=== PATIENT | male | born 1945 | race Caucasian/White ===

== ENCOUNTER 2018-06-05 23:38 | Inpatient (IN) | payer MEDICARE, OTHER ==
[~2018-06-05] VITALS: Ht 182.9 cm; Wt 111.1 kg
[2018-06-05] MEDS ORDERED: PRAMIPEXOLE DI0.5 MG ORAL (23:46)
--- NOTE | 2018-06-05 23:57 | Emergency Room Report ---
History of Present Illness General Chief Complaint: Overdose Source: Patient Present Illness HPI Patient presents with reports that he feels he took 18 75 mg cervicals at 8 PM tonight Patient reports that he is taking pramipexole .25 every night and he takes 18 of those, and mistakenly took the wrong medication At approximately 10:30 he started feeling somewhat weak some dizziness Mild nausea And after rechecking he realized that he had taken the wrong medication After contacting poison control he presents to the ER Allergies: Coded Allergies: No Known Allergies (Unverified , 06/05/18) Patient History Past Medical History: see triage record Pertinent Family History: none Reviewed Nursing Documentation: PMH: Agreed; PSxH: Agreed Nursing Documentation-PMH Past Medical History: No Stated History History Of Psychiatric Problem: Yes - depression Review of Systems All Other Systems: negative except mentioned in HPI Physical Exam Vital Signs Date Time Temp Pulse Resp B/P (MAP) Pulse Ox O2 Delivery O2 Flow Rate FiO2 06/05/18 23:41 98.1 100 14 126/86 99 Sp02 EP Interpretation: reviewed, normal General Appearance: well appearing, no apparent distress Head: normocephalic, atraumatic Eyes: bilateral eye PERRL, bilateral eye EOMI ENT: hearing grossly normal, normal pharynx, TMs + canals normal, uvula midline Neck: full range of motion, supple, no meningismus, no bony tend Respiratory: lungs clear, normal breath sounds, no rhonchi, no respiratory distress, no retraction, no accessory muscle use Cardiovascular #1: normal peripheral pulses, regular rate, rhythm, no edema, no gallop, no JVD, no murmur Gastrointestinal: normal bowel sounds, non tender, soft, no mass, no organomegaly, non-distended, no guarding, no hernia, no pulsatile mass, no rebound Genitourinary: no CVA tenderness Musculoskeletal: normal inspection Neurologic: oriented x3, responsive, 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, motor strength/ tone normal, sensory intact Psychiatric: mood/affect normal Skin: normal color, no rash, warm/dry, palpation normal Lymphatic: normal inspection, no adenopathy Procedures Critical Care Time Critical Care Time 40 minutes for initial clinical presentation concern for drug ingestion, and cardiac changes, family consultant such as poison control not including procedural time Medical Decision Making Diagnostic Impression: Primary Impression: Drug overdose Additional Impression: Dehydration ER Course Given the patient's presentation Poison control was contacted At Patient presents somewhat tachycardic Patient remains awake and alert however reports that he had felt some weakness and mild headache At this time patient's EKG did show mildly prolonged QRS however patient reports that he does have some interventricular block he cannot give a specific however Given the patient's findings sodium bicarbonate was recommended by poison control patient has not significantly better and heart rate has improved down to 90 QRS appears to be more consistent with likely interventricular block Nevertheless given the findings and the patient's presentation I felt patient required further inpatient care and further clearance also given the patient's history Psychiatric consultation obtain inpatient Labs Test 06/06/18 00:04 White Blood Count 7.1 K/UL (4.8-10.8) Red Blood Count 5.46 M/UL (4.70-6.10) Hemoglobin 16.0 G/DL (14.2-18.0) Hematocrit 47.4 % (42.0-52.0) Mean Corpuscular Volume 87 FL (80-99) Mean Corpuscular Hemoglobin 29.4 PG (27.0-31.0) Mean Corpuscular Hemoglobin Concent 33.9 G/DL (32.0-36.0) Red Cell Distribution Width 12.5 % (11.6-14.8) Platelet Count 180 K/UL (150-450) Mean Platelet Volume 8.1 FL (6.5-10.1) Neutrophils (%) (Auto) 47.6 % (45.0-75.0) Lymphocytes (%) (Auto) 39.0 % (20.0-45.0) Monocytes (%) (Auto) 9.7 % (1.0-10.0) Eosinophils (%) (Auto) 2.3 % (0.0-3.0) Basophils (%) (Auto) 1.4 % (0.0-2.0) Sodium Level 140 MMOL/L (136-145) Potassium Level 3.8 MMOL/L (3.5-5.1) Chloride Level 105 MMOL/L (98-107) Carbon Dioxide Level 27 MMOL/L (21-32) Anion Gap 8 mmol/L (5-15) Blood Urea Nitrogen 20 mg/dL (7-18) Creatinine 0.9 MG/DL (0.55-1.30) Estimat Glomerular Filtration Rate mL/min (>60) Glucose Level 136 MG/DL (74-106) Calcium Level 9.2 MG/DL (8.5-10.1) Total Bilirubin 0.5 MG/DL (0.2-1.0) Aspartate Amino Transf (AST/SGOT) 26 U/L (15-37) Alanine Aminotransferase (ALT/SGPT) 51 U/L (12-78) Alkaline Phosphatase 103 U/L (46-116) Total Protein 7.4 G/DL (6.4-8.2) Albumin 3.4 G/DL (3.4-5.0) Globulin 4.0 g/dL Albumin/Globulin Ratio 0.9 (1.0-2.7) Salicylates Level 1.3 ug/mL (2.8-20) Urine Opiates Screen Negative (NEGATIVE) Acetaminophen Level < 2 MCG/ML (10-30) Urine Barbiturates Screen Negative (NEGATIVE) Phencyclidine (PCP) Screen Negative (NEGATIVE) Urine Amphetamines Screen Negative (NEGATIVE) Urine Benzodiazepines Screen Negative (NEGATIVE) Urine Cocaine Screen Negative (NEGATIVE) Urine Marijuana (THC) Screen Negative (NEGATIVE) Serum Alcohol < 3 mg/dL EKG Diagnostic Results Rate: tachycardiac Rhythm: other ST Segments: other - Right bundle branch block tachycardic Rhythm Strip Diag. Results EP Interpretation: yes Rate: 90 Rhythm: NSR, no PVC's, no ectopy Last Vital Signs Date Time Temp Pulse Resp B/P (MAP) Pulse Ox O2 Delivery O2 Flow Rate FiO2 06/05/18 23:41 98.1 100 14 126/86 99 Status: improved Disposition: ADMITTED INPATIENT Condition: Serious MichaelshivMeredith DO Jun 05, 2018 23:57
[2018-06-06] VITALS (8 sets, daily range): BP systolic 104–138; BP diastolic 51–87
--- NOTE | 2018-06-06 00:10 | NUR ---
ER Nurse Note: Pt came from home c/o overdose from 18 pills of 75mg of seroquel at 1999. Pt stated he took the wrong medication and at 2229, pt felt n/v and dizzy. Pt called posion control and came to ER. Pt a&ox4, VSS, pale. Pupils reactive to light, full sensation in all extremities. Voids with no difficulties. ERMD at pt side; will continue to montior.
[2018-06-06] MEDS ORDERED: Sodium Bicarbonate 50ml Carp IV ONE (00:15)
[2018-06-06 00:22] LABS: BASOPHILS % (AUTO) 1.4 % (0.0-2.0); EOSINOPHILS % (AUTO) 2.3 % (0.0-3.0); HEMATOCRIT 47.4 % (42.0-52.0); MEAN CORPUSCULAR VOLUME 87 FL (80-99); MONOCYTES % (AUTO) 9.7 % (1.0-10.0); NEUTROPHILS % (AUTO) 47.6 % (45.0-75.0); PLATELET COUNT 180 K/UL (150-450); RED BLOOD COUNT 5.46 M/UL (4.70-6.10); RED CELL DISTRIBUTION WIDTH 12.5 % (11.6-14.8); WHITE BLOOD COUNT 7.1 K/UL (4.8-10.8)
[2018-06-06 00:30] LABS: ANION GAP 8 mmol/L (5-15); BLOOD UREA NITROGEN 20 mg/dL (7-18); CALCIUM 9.2 MG/DL (8.5-10.1); CARBON DIOXIDE 27 MMOL/L (21-32); CHLORIDE 105 MMOL/L (98-107); CREATININE 0.9 MG/DL (0.55-1.30); POTASSIUM 3.8 MMOL/L (3.5-5.1); SODIUM 140 MMOL/L (136-145)
[2018-06-06 00:34] LABS: ALANINE AMINOTRANSFERASE 51 U/L (12-78); ALBUMIN 3.4 G/DL (3.4-5.0); ALBUMIN/GLOBULIN RATIO 0.9 (1.0-2.7); ALKALINE PHOSPHATASE 103 U/L (46-116); ASPARTATE AMINO TRANSFERASE 26 U/L (15-37); BILIRUBIN,TOTAL 0.5 MG/DL (0.2-1.0)
--- NOTE | 2018-06-06 00:59 | NUR ---
ER Nurse Note: All orders completed per ERMD orders; tolerated well. VSS, no signs of distress. All safety measures met; will continue to montior.
--- NOTE | 2018-06-06 03:50 | NUR ---
Hospital bed requested from [facility].
--- NOTE | 2018-06-06 04:02 | NUR ---
ER Nurse Note: Pt on inpt bed, able to transfer to [facility] without difficulty. Pt a&ox4, VSS no signs of distress. Pt is asleep and calm. IV patent. Contacted MD for orders. All safety measures met; will continue to juan ramon.
[2018-06-06] MEDS: D5 1/2NS 1,000 ML IV SCH ×2 (04:55→17:48)
[2018-06-06 05:19] LABS: BASOPHILS % (AUTO) 0.9 % (0.0-2.0); EOSINOPHILS % (AUTO) 2.9 % (0.0-3.0); HEMATOCRIT 43.5 % (42.0-52.0); HEMOGLOBIN 14.5 G/DL (14.2-18.0); LYMPHOCYTES % (AUTO) 41.2 % (20.0-45.0); MEAN CORPUSCULAR VOLUME 87 FL (80-99); MONOCYTES % (AUTO) 9.5 % (1.0-10.0); NEUTROPHILS % (AUTO) 45.6 % (45.0-75.0); PLATELET COUNT 164 K/UL (150-450); RED BLOOD COUNT 5.01 M/UL (4.70-6.10); RED CELL DISTRIBUTION WIDTH 12.5 % (11.6-14.8); WHITE BLOOD COUNT 6.2 K/UL (4.8-10.8)
[2018-06-06 05:29] LABS: ANION GAP 5 mmol/L (5-15); BLOOD UREA NITROGEN 18 mg/dL (7-18); CALCIUM 8.4 MG/DL (8.5-10.1); CARBON DIOXIDE 29 MMOL/L (21-32); CHLORIDE 110 MMOL/L (98-107); CREATININE 1.2 MG/DL (0.55-1.30); POTASSIUM 3.9 MMOL/L (3.5-5.1); SODIUM 144 MMOL/L (136-145)
--- NOTE | 2018-06-06 06:49 | NUR ---
ER Nurse Note: Pt asleep, calm, no signs of distress, VSS. IV patent; infusing 60 cc D5 .45 NS; tolerating well. Pt is ambulatory; no skin breakdown. Awaiting room in tele. All safety measures met; will endorse care to oncoming shift for continutiy of care.
--- NOTE | 2018-06-06 07:16 | NUR ---
ER Nurse Note: Report given to YIFAN Gore for continuity of care.
--- NOTE | 2018-06-06 07:18 | NUR ---
ED Nurse Note: Report received from Steven Turner RN. Patient noted resting comfortable. No s/sx of distress with oxygen saturation of 94% on room air, SR on the monitor with rate on 90s. Patient alert and oriented. Denies nausea nor pain. With on going IVF:D5 1/2 NS at 60 ml/hour. Waiting for bed in telemetry.
[2018-06-06] MEDS ORDERED: ZYPREXA2.5 MG ORAL ×2 (09:11→16:16)
[2018-06-06] MEDS ORDERED: VENLAFAXINE H37.5 MG ORAL (09:11)
--- NOTE | 2018-06-06 09:20 | NUR ---
ED Nurse Note: Report given to YIFAN Medina using SBAR. Patient to be transported to room 202-2. Patient made aware.
--- NOTE | 2018-06-06 09:25 | NUR ---
ED Nurse Note: Call received from poison control and spoke with Leandro and informed on the EKG results but with noted elevated QTc she gave recommendations as follows: repeat EKG and if QTc is >470 administer 1-2 grams of magnesium sulfate slow IVP over 10 minutes and may also repeat serum magnesium level to make sure Magnesium is not elevated after administration. ERICK was made aware with instruction to have Dr. Marx made aware of the recommendations.
--- NOTE | 2018-06-06 09:30 | NUR ---
NURSE NOTES: received patient report from laure brown. patient came in via hospital bed.patient is noted to be AOX4. not in acute distress. cardiac catheterization technologist initiated. vitals signs taken and recorded. belongings checked and signed. under the care of dr joshua garcia. will continue to care.
--- NOTE | 2018-06-06 09:35 | NUR ---
ED Nurse Note: Patient remained alert and oriented, no s/sx of distress on room air, vital signs stable, SR on the monitor. Transferred to room 202-2 via bed, with monitor on. All belongings were sent with patient and list reviewed with receiving RN. Carol, YIFAN was made aware of the poison control's recommendation and to ask Dr. Tahir Marx. Addendum: 06/06/18 at 1009 by JOHNY ED Nurse Note: Transferred at 0930.
--- NOTE | 2018-06-06 10:00 | NUR ---
NURSE NOTES: landon rn from ER reported that, posion control just called ER and made a recommendations that if QTC is more than 470, give 1-2 g of mag so4 IVP, slow for 10 minutes.will fu with admitting MD.
--- NOTE | 2018-06-06 10:02 | NUR ---
NURSE NOTES: Per ER patient was suspected overdose/ suicide attempt. Assessed patient, inquired pt was taking any new medications, per patient "I took seroquel by mistake instead of Pramipexole which was the one I was suppose to take." Inquire pt if they have ever had any urge to hurt self or others, patient denies urge to hurt self or others. Patient is alert and oriented x 4. Will continue to monitor patient.
--- NOTE | 2018-06-06 10:21 | NUR ---
NURSE NOTES: left a message to dr garcia regarding admission orders. awaiting callback and new orders.
--- NOTE | 2018-06-06 12:17 | Consultation ---
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 He took 18 pill of Zyprexa each 75m at instead of his pramipexole by mistake, started feeling somewhat weak some dizziness, nausea. He called himself the poison control and was told to come to ER. Allergies: Coded Allergies: No Known Allergies (Unverified , 06/05/18) Medication History Scheduled Olanzapine* (Zyprexa*), 2.5 MG ORAL BEDTIME, (Reported) Pramipexole Dihydrochloride* (Mirapex*), 0.25 MG ORAL THREE TIMES A DAY, ( Reported) Venlafaxine Hcl* (Effexor*), 112.5 MG ORAL DAILY, (Reported) Patient History Healthcare decision maker Resuscitation status Full Code Advanced Directive on File Review of Systems Constitutional: Reports: malaise, weakness All Other Systems: negative except mentioned in HPI Physical Exam General Appearance: WD/WN, no apparent distress Lines, tubes and drains: peripheral HEENT: normocephalic, atraumatic Neck: non-tender Respiratory/Chest: chest wall non-tender Breasts: no masses Cardiovascular/Chest: normal peripheral pulses Abdomen: normal bowel sounds Genitourinary/Rectal: normal genital exam Extremities: normal range of motion Skin Exam: normal pigmentation Neurologic: no motor/sensory deficits Last 24 Hour Vital Signs Date Time Temp Pulse Resp B/P (MAP) Pulse Ox O2 Delivery O2 Flow Rate FiO2 06/06/18 10:44 Room Air 06/06/18 10:00 Room Air 06/06/18 09:40 98.5 100 18 138/78 (98) 95 06/06/18 09:30 98.8 90 16 125/63 97 Room Air 06/06/18 09:20 98.8 90 16 125/63 97 Room Air 06/06/18 08:00 110 16 129/61 97 Room Air 06/06/18 07:22 90 16 Room Air 06/06/18 07:20 98.0 90 16 115/69 94 Room Air 06/06/18 06:48 98.0 94 16 106/87 97 Room Air 06/06/18 04:41 Room Air 06/06/18 04:02 98.0 95 15 128/84 99 06/06/18 00:10 98.1 100 14 126/86 99 06/06/18 00:10 100 14 06/05/18 23:41 98.1 100 14 126/86 99 Intake and Output 06/05/18 06/06/18 19:00 07:00 Intake Total 1060 ml Balance 1060 ml IV Total 1060 ml # Voids 1 Laboratory Tests Test 06/06/18 00:04 06/06/18 04:20 White Blood Count 7.1 K/UL (4.8-10.8) 6.2 K/UL (4.8-10.8) Red Blood Count 5.46 M/UL (4.70-6.10) 5.01 M/UL (4.70-6.10) Hemoglobin 16.0 G/DL (14.2-18.0) 14.5 G/DL (14.2-18.0) Hematocrit 47.4 % (42.0-52.0) 43.5 % (42.0-52.0) Mean Corpuscular Volume 87 FL (80-99) 87 FL (80-99) Mean Corpuscular Hemoglobin 29.4 PG (27.0-31.0) 28.9 PG (27.0-31.0) Mean Corpuscular Hemoglobin Concent 33.9 G/DL (32.0-36.0) 33.3 G/DL (32.0-36.0) Red Cell Distribution Width 12.5 % (11.6-14.8) 12.5 % (11.6-14.8) Platelet Count 180 K/UL (150-450) 164 K/UL (150-450) Mean Platelet Volume 8.1 FL (6.5-10.1) 8.4 FL (6.5-10.1) Neutrophils (%) (Auto) 47.6 % (45.0-75.0) 45.6 % (45.0-75.0) Lymphocytes (%) (Auto) 39.0 % (20.0-45.0) 41.2 % (20.0-45.0) Monocytes (%) (Auto) 9.7 % (1.0-10.0) 9.5 % (1.0-10.0) Eosinophils (%) (Auto) 2.3 % (0.0-3.0) 2.9 % (0.0-3.0) Basophils (%) (Auto) 1.4 % (0.0-2.0) 0.9 % (0.0-2.0) Sodium Level 140 MMOL/L (136-145) 144 MMOL/L (136-145) Potassium Level 3.8 MMOL/L (3.5-5.1) 3.9 MMOL/L (3.5-5.1) Chloride Level 105 MMOL/L (98-107) 110 MMOL/L (98-107) H Carbon Dioxide Level 27 MMOL/L (21-32) 29 MMOL/L (21-32) Anion Gap 8 mmol/L (5-15) 5 mmol/L (5-15) Blood Urea Nitrogen 20 mg/dL (7-18) H 18 mg/dL (7-18) Creatinine 0.9 MG/DL (0.55-1.30) 1.2 MG/DL (0.55-1.30) Estimat Glomerular Filtration Rate mL/min (>60) mL/min (>60) Glucose Level 136 MG/DL (74-106) H 115 MG/DL (74-106) H Calcium Level 9.2 MG/DL (8.5-10.1) 8.4 MG/DL (8.5-10.1) L Total Bilirubin 0.5 MG/DL (0.2-1.0) Aspartate Amino Transf (AST/SGOT) 26 U/L (15-37) Alanine Aminotransferase (ALT/SGPT) 51 U/L (12-78) Alkaline Phosphatase 103 U/L (46-116) Total Protein 7.4 G/DL (6.4-8.2) Albumin 3.4 G/DL (3.4-5.0) Globulin 4.0 g/dL Albumin/Globulin Ratio 0.9 (1.0-2.7) L Salicylates Level 1.3 ug/mL (2.8-20) L Urine Opiates Screen Negative (NEGATIVE) Acetaminophen Level < 2 MCG/ML (10-30) L Urine Barbiturates Screen Negative (NEGATIVE) Phencyclidine (PCP) Screen Negative (NEGATIVE) Urine Amphetamines Screen Negative (NEGATIVE) Urine Benzodiazepines Screen Negative (NEGATIVE) Urine Cocaine Screen Negative (NEGATIVE) Urine Marijuana (THC) Screen Negative (NEGATIVE) Serum Alcohol < 3 mg/dL Height (Feet): 6 Height (Inches): 0.00 Weight (Pounds): 245 Medications Current Medications Medications (Trade) Dose Ordered Sig/Claudia Route PRN Reason Start Time Stop Time Status Last Admin Dose Admin Dextrose (Dextrose 50%) 25 ml Q30M PRN IV Hypoglycemia 06/06/18 04:15 07/06/18 04:14 Dextrose (Dextrose 50%) 50 ml Q30M PRN IV Hypoglycemia 06/06/18 04:15 07/06/18 04:14 Dextrose/Sodium Chloride 1,000 ml @ 60 mls/hr [id number] IV 06/06/18 05:05 07/06/18 05:04 06/06/18 04:55 Assessment/Plan Problem List: (1) Parkinson disease ICD Codes: G20 - Parkinson's disease SNOMED: 41029307 (2) Accidental Zyprexa poisoning ICD Codes: T43.591A - Poisoning by other antipsychotics and neuroleptics, accidental (unintentional), initial encounter SNOMED: 739444246 Assessment/Plan IV fluids fu poison control recommendations Echocardiogram serial ekg Sachi Ridley MD Jun 06, 2018 12:17
--- NOTE | 2018-06-06 12:19 | NUR ---
NURSE NOTES: left a message to dr richards [phone] banegas request for old EKG result.awaitng callback and new orders as of this time.
--- NOTE | 2018-06-06 13:39 | NUR ---
NURSE NOTES: left a message to dr johnson regarding patients mirapex dosage. awaiting callback and new orders as of this time.
[2018-06-06] MEDS ORDERED: FISH OIL CAP1000 MG ORAL (16:07)
[2018-06-06] MEDS ORDERED: ASPIRIN-LOW81 MG ORAL (16:16)
--- NOTE | 2018-06-06 16:24 | NUR ---
NURSE NOTES: per dr johnson, do not administer zyprexa. asa 81 mg and fish oil are ok to administer. will carry out.
--- NOTE | 2018-06-06 18:03 | NUR ---
NURSE NOTES: LEFT A MESSAGE TO DR MCCALLUM REGARDING DVT PROPHYLAXIS. AWAITNG CALLBACK AND NEW ORDER.
--- NOTE | 2018-06-06 18:45 | History and Physical Report ---
DATE OF ADMISSION: 06/06/2018 TIME SEEN: At 1 p.m. CONSULTANTS: 1. Sachi Ridley M.D. 2. Wilma Crawford M.D. CHIEF COMPLAINT: Seroquel overdose. BRIEF HISTORY: This is a 72-year-old male, who lives at home, presents with history of overdosing on Seroquel yesterday. He stated that he accidentally took 18 Seroquel. The patient came to [facility], diagnosed with the above, admitted to telemetry for further care. Currently, hard of hearing and calm in bed. No complaint. No chest pain. No shortness of breath. No nausea, vomiting, or diarrhea. PAST MEDICAL HISTORY: Poor hearing and depression. PAST SURGICAL HISTORY: Tonsillectomy. ALLERGIES: Denies. MEDICATION: Effexor, magnesium, dextrose, IV fluid, and Mirapex. SOCIAL HISTORY: No smoking. No alcohol. No intravenous drug abuse FAMILY HISTORY: Noncontributory. PHYSICAL EXAMINATION: GENERAL: Calm in bed and oriented x2, in no acute distress and poor hearing. VITAL SIGNS: Temperature is 98 degrees, pulse is 118, and blood pressure 138/78. CARDIOVASCULAR: No murmur. LUNGS: Distant and clear. ABDOMEN: Bowel sounds positive. Nontender. Nondistended. EXTREMITIES: No cyanosis, clubbing, or edema. NEUROLOGIC: The patient moves all extremities, slightly weak. LABORATORY AND DIAGNOSTIC DATA: Labs at this time show, CBC is normal. BMP shows chloride 110, glucose 115, calcium 8.4, and troponin 0.016. Urine toxicology, salicylate 1.3 and Tylenol less than 2, otherwise all negative. ASSESSMENT: 1. Seroquel overdose. 2. Poor hearing. 3. Parkinson. PLAN: 1. Intravenous fluid. 2. Dietary followup. 3. CBC and BMP this morning. 4. Psych and pulmonary followup. Tahir Marx D.O. DR: LORNA JOB#: [id number] CC:
--- NOTE | 2018-06-06 18:52 | NUR ---
NURSE NOTES: left a message to dr taylor (psych) regarding this patient to call back the unit for psych eval.awaitng callback.
--- NOTE | 2018-06-06 19:19 | NUR ---
HAND-OFF: Report given to helder brown.
--- NOTE | 2018-06-06 19:20 | NUR ---
NURSE NOTES: Got report from Carol SAHA. Pt in stable condition. Denies any pain. No s/s of distress or discomfort noted. Pt ersting in bed comfortably. Bed in low and locked position, call llight within reach, bedside table within reach. continue to monitor.
[2018-06-06] MEDS ORDERED: Pramipexole 0.5mg tab ORAL SCH (21:00)
[2018-06-07] VITALS: BP 102/50
[2018-06-07 04:00] VITALS: BP 117/81
--- NOTE | 2018-06-07 07:22 | NUR ---
NURSE NOTES: Received report form YIFAN Kirk. Patient is resting in bed, in stable condition. No s/sx of SOB, breathing is even and unlabored. Denies any presence of pain or discomfort at this time. Bed is in lowest position, brakes engaged. Call light is kept within easy reach. Will continue to monitor patient.
--- NOTE | 2018-06-07 07:30 | NUR ---
HAND-OFF: Report given to willy brown. endorsed plan of care.
[2018-06-07 08:32] LABS: BASOPHILS % (AUTO) 0.7 % (0.0-2.0); EOSINOPHILS % (AUTO) 2.2 % (0.0-3.0); HEMATOCRIT 44.4 % (42.0-52.0); LYMPHOCYTES % (AUTO) 30.5 % (20.0-45.0); MEAN CORPUSCULAR VOLUME 88 FL (80-99); MONOCYTES % (AUTO) 10.8 % (1.0-10.0); NEUTROPHILS % (AUTO) 55.8 % (45.0-75.0); PLATELET COUNT 169 K/UL (150-450); RED BLOOD COUNT 5.05 M/UL (4.70-6.10); RED CELL DISTRIBUTION WIDTH 12.9 % (11.6-14.8); WHITE BLOOD COUNT 6.5 K/UL (4.8-10.8)
[2018-06-07] MEDS ORDERED: Venlafaxine XR 37.5mg cap ORAL SCH (09:00)
[2018-06-07] MEDS ORDERED: Aspirin EC 81mg tab ORAL SCH (09:00)
--- NOTE | 2018-06-07 09:07 | NUR ---
REHAB MED PT NOTE CONSULT BRISSA OCONNOR COMPLETED, PATIENT NO SKILLED NEEDS AT THIS TIME. AT BASELINE LEVEL OF FUNCTION. PATIENT REFUSING. DC PT ORDER. APRIL STEELE PT DPT Addendum: 06/07/18 at 0907 by APRIL STEELE PT Amended: Links added.
[2018-06-07 09:37] LABS: ANION GAP 7 mmol/L (5-15); BLOOD UREA NITROGEN 15 mg/dL (7-18); CALCIUM 8.7 MG/DL (8.5-10.1); CARBON DIOXIDE 26 MMOL/L (21-32); CHLORIDE 108 MMOL/L (98-107); CREATININE 1.1 MG/DL (0.55-1.30); POTASSIUM 4.2 MMOL/L (3.5-5.1); SODIUM 141 MMOL/L (136-145)
--- NOTE | 2018-06-07 10:26 | NUR ---
Social Work This Sw followed up with patient due to possible overdose prior to admission. This SW met with patient who is currently alert/oriented x3, hard of hearing, who explained he was not feeling suicidal, with no intent to harm self. Patient explains "I just took the wrong medication." Patient explains he plans to return home, has a friend who has been assisting him as needed. This SW provided [facility] information (contact number and application), while explaining what the services provide (patient plans to have his friend apply to become his caregiver). Patient also requesting home care to follow as well (as needed).
--- NOTE | 2018-06-07 12:26 | Pulmonology Progress Note ---
Assessment/Plan Problems: (1) Parkinson disease (2) Accidental Zyprexa poisoning Assessment/Plan dc IV fluids awaiting cardio consult f/u poison control recommendations symptomatic treatment echo reviewed Subjective ROS Limited/Unobtainable: Yes Constitutional: Reports: no symptoms HEENT: Repors: no symptoms Respiratory: Reports: no symptoms Cardiovascular: Reports: no symptoms Allergies: Coded Allergies: No Known Allergies (Unverified , 06/05/18) Objective Last 24 Hour Vital Signs Date Time Temp Pulse Resp B/P (MAP) Pulse Ox O2 Delivery O2 Flow Rate FiO2 06/07/18 09:00 Room Air 06/07/18 04:00 98.0 80 18 117/81 (93) 95 06/07/18 04:00 86 06/07/18 00:00 98.5 83 18 102/50 (67) 95 06/07/18 00:00 81 06/06/18 21:00 Room Air 06/06/18 20:00 89 06/06/18 20:00 98.1 86 19 104/51 (68) 95 06/06/18 16:00 89 Intake and Output 06/06/18 06/07/18 19:00 07:00 Intake Total 1190 ml Output Total 875 ml 600 ml Balance 315 ml -600 ml Intake Oral 360 ml IV Total 830 ml Output Urine Total 875 ml 600 ml # Voids 1 # Bowel Movements 1 General Appearance: WD/WN HEENT: normocephalic, atraumatic Respiratory/Chest: chest wall non-tender, lungs clear Cardiovascular: normal peripheral pulses, normal rate Abdomen: normal bowel sounds, soft, non tender Extremities: no cyanosis 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 Laboratory Tests 06/07/18 06:24: White Blood Count 6.5, Red Blood Count 5.05, Hemoglobin 15.0, Hematocrit 44.4, Mean Corpuscular Volume 88, Mean Corpuscular Hemoglobin 29.7, Mean Corpuscular Hemoglobin Concent 33.8, Red Cell Distribution Width 12.9, Platelet Count 169, Mean Platelet Volume 8.0, Neutrophils (%) (Auto) 55.8, Lymphocytes (%) (Auto) 30.5, Monocytes (%) (Auto) 10.8H, Eosinophils (%) (Auto) 2.2, Basophils (%) ( Auto) 0.7, Sodium Level 141, Potassium Level 4.2, Chloride Level 108H, Carbon Dioxide Level 26, Anion Gap 7, Blood Urea Nitrogen 15, Creatinine 1.1, Estimat Glomerular Filtration Rate , Glucose Level 99, Calcium Level 8.7, Troponin I 0.011 Current Medications Medications (Trade) Dose Ordered Sig/Claudia Route PRN Reason Start Time Stop Time Status Last Admin Dose Admin Aspirin (Ecotrin) 81 mg DAILY ORAL 06/07/18 09:00 07/07/18 08:59 06/07/18 08:25 Dextrose (Dextrose 50%) 25 ml Q30M PRN IV Hypoglycemia 06/06/18 04:15 07/06/18 04:14 Dextrose (Dextrose 50%) 50 ml Q30M PRN IV Hypoglycemia 06/06/18 04:15 07/06/18 04:14 Dextrose/Sodium Chloride 1,000 ml @ 60 mls/hr [id number] IV 06/06/18 05:05 07/06/18 05:04 06/06/18 17:48 Fish Oil (Fish Oil) 1,000 mg DAILY ORAL 06/07/18 09:00 07/07/18 08:59 06/07/18 08:25 Pramipexole (Mirapex) 4.5 mg QHS ORAL 06/06/18 21:00 07/06/18 20:59 06/06/18 21:00 Venlafaxine HCl (Effexor-XR) 112.5 mg DAILY ORAL 06/07/18 09:00 07/07/18 08:59 06/07/18 08:26 Sachi Ridley MD Jun 07, 2018 12:26
--- NOTE | 2018-06-07 12:55 | NUR ---
NURSE NOTES: Called Poison Control Department, , and spoke with Imer, per Imer would like to know QTc of recent EKG, informed Imer that QTc is 388 ms. Imer acknowledged and stated, "Okay much better, there are no more recommendations at this time, patient can leave once discharged by doctors." Noted. Informed Dr. Ridley at nurse station, acknowledged and will get cardio consult. Noted.
--- NOTE | 2018-06-07 13:51 | General Progress Note ---
Assessment/Plan Problem List: (1) Overdose ICD Codes: T50.901A - Poisoning by unspecified drugs, medicaments and biological substances, accidental (unintentional), initial encounter SNOMED: 90759500 (2) Drug overdose ICD Codes: T50.901A - Poisoning by unspecified drugs, medicaments and biological substances, accidental (unintentional), initial encounter SNOMED: 66171283 (3) Accidental Zyprexa poisoning ICD Codes: T43.591A - Poisoning by other antipsychotics and neuroleptics, accidental (unintentional), initial encounter SNOMED: 999116026 (4) Parkinson disease ICD Codes: G20 - Parkinson's disease SNOMED: 28239191 Status: unchanged Assessment/Plan diet ivf cbc bmp am dc plan w hh if clear cardio eval Subjective Constitutional: Reports: weakness Allergies: Coded Allergies: No Known Allergies (Unverified , 06/05/18) All Systems: reviewed and negative except above Subjective sl anxious in bed Objective Last 24 Hour Vital Signs Date Time Temp Pulse Resp B/P (MAP) Pulse Ox O2 Delivery O2 Flow Rate FiO2 06/07/18 09:00 Room Air 06/07/18 04:00 98.0 80 18 117/81 (93) 95 06/07/18 04:00 86 06/07/18 00:00 98.5 83 18 102/50 (67) 95 06/07/18 00:00 81 06/06/18 21:00 Room Air 06/06/18 20:00 89 06/06/18 20:00 98.1 86 19 104/51 (68) 95 06/06/18 16:00 89 Intake and Output 06/06/18 06/07/18 19:00 07:00 Intake Total 1190 ml Output Total 875 ml 600 ml Balance 315 ml -600 ml Intake Oral 360 ml IV Total 830 ml Output Urine Total 875 ml 600 ml # Voids 1 # Bowel Movements 1 Laboratory Tests 06/07/18 06:24: White Blood Count 6.5, Red Blood Count 5.05, Hemoglobin 15.0, Hematocrit 44.4, Mean Corpuscular Volume 88, Mean Corpuscular Hemoglobin 29.7, Mean Corpuscular Hemoglobin Concent 33.8, Red Cell Distribution Width 12.9, Platelet Count 169, Mean Platelet Volume 8.0, Neutrophils (%) (Auto) 55.8, Lymphocytes (%) (Auto) 30.5, Monocytes (%) (Auto) 10.8H, Eosinophils (%) (Auto) 2.2, Basophils (%) ( Auto) 0.7, Sodium Level 141, Potassium Level 4.2, Chloride Level 108H, Carbon Dioxide Level 26, Anion Gap 7, Blood Urea Nitrogen 15, Creatinine 1.1, Estimat Glomerular Filtration Rate , Glucose Level 99, Calcium Level 8.7, Troponin I 0.011 Height (Feet): 6 Height (Inches): 0.00 Weight (Pounds): 245 General Appearance: alert EENT: normal ENT inspection Neck: normal alignment Cardiovascular: normal peripheral pulses, normal rate, regular rhythm Respiratory/Chest: chest wall non-tender, lungs clear, normal breath sounds Abdomen: normal bowel sounds, non tender, soft Extremities: normal inspection Edema: no edema noted Arm (L), no edema noted Arm (R), no edema noted Leg (L), no edema noted Leg (R), no edema noted Pedal (L), no edema noted Pedal (R), no edema noted Generalized Neurologic: responsive, motor weakness Skin: normal pigmentation, warm/dry Tahir Marx DO Jun 07, 2018 13:51
--- NOTE | 2018-06-07 13:52 | Cardiology Progress Note ---
Assessment/Plan Assessment/Plan [id number] if nto orthostatic from cardiac veiw point i see no other active issues he want to statt na exercise -program i have recommended he has a stress test as outpt before he dose so Objective Last 24 Hour Vital Signs Date Time Temp Pulse Resp B/P (MAP) Pulse Ox O2 Delivery O2 Flow Rate FiO2 06/07/18 09:00 Room Air 06/07/18 04:00 98.0 80 18 117/81 (93) 95 06/07/18 04:00 86 06/07/18 00:00 98.5 83 18 102/50 (67) 95 06/07/18 00:00 81 06/06/18 21:00 Room Air 06/06/18 20:00 89 06/06/18 20:00 98.1 86 19 104/51 (68) 95 06/06/18 16:00 89 Intake and Output 06/06/18 06/07/18 19:00 07:00 Intake Total 1190 ml Output Total 875 ml 600 ml Balance 315 ml -600 ml Intake Oral 360 ml IV Total 830 ml Output Urine Total 875 ml 600 ml # Voids 1 # Bowel Movements 1 Laboratory Tests Test 06/07/18 06:24 White Blood Count 6.5 K/UL (4.8-10.8) Red Blood Count 5.05 M/UL (4.70-6.10) Hemoglobin 15.0 G/DL (14.2-18.0) Hematocrit 44.4 % (42.0-52.0) Mean Corpuscular Volume 88 FL (80-99) Mean Corpuscular Hemoglobin 29.7 PG (27.0-31.0) Mean Corpuscular Hemoglobin Concent 33.8 G/DL (32.0-36.0) Red Cell Distribution Width 12.9 % (11.6-14.8) Platelet Count 169 K/UL (150-450) Mean Platelet Volume 8.0 FL (6.5-10.1) Neutrophils (%) (Auto) 55.8 % (45.0-75.0) Lymphocytes (%) (Auto) 30.5 % (20.0-45.0) Monocytes (%) (Auto) 10.8 % (1.0-10.0) H Eosinophils (%) (Auto) 2.2 % (0.0-3.0) Basophils (%) (Auto) 0.7 % (0.0-2.0) Sodium Level 141 MMOL/L (136-145) Potassium Level 4.2 MMOL/L (3.5-5.1) Chloride Level 108 MMOL/L (98-107) H Carbon Dioxide Level 26 MMOL/L (21-32) Anion Gap 7 mmol/L (5-15) Blood Urea Nitrogen 15 mg/dL (7-18) Creatinine 1.1 MG/DL (0.55-1.30) Estimat Glomerular Filtration Rate mL/min (>60) Glucose Level 99 MG/DL (74-106) Calcium Level 8.7 MG/DL (8.5-10.1) Troponin I 0.011 ng/mL (0.000-0.056) Oscar Lange MD Jun 07, 2018 13:52
--- NOTE | 2018-06-07 14:20 | NUR ---
NURSE NOTES: Dr. Lange seen and examined patient. Made MD aware of orthostatic hypertension results, MD acknowledged and per MD cleared from cardiology perspective. Noted.
--- NOTE | 2018-06-07 14:30 | NUR ---
NURSE NOTES: Made Dr. Ridley and Dr. Marx aware that pt is cleared from cardiology perspective. Dr. Marx ordered to discharge patient home with hospital medications and [facility] . Order entered, noted, and carried out.
--- NOTE | 2018-06-07 15:15 | NUR ---
NURSE NOTES: Patient discharged to home with [facility] per Dr. Marx. All discharge instructions given to patient, patient verbalized understanding. IV access removed. Heart monitor removed and returned to case monitor. ID band removed and placed in shredder. All patient medications given to patient. Patient left via private vehicle with friend, with all belongings in stable condition.
--- NOTE | 2018-06-07 16:15 | Consultation ---
DATE OF CONSULTATION: 06/07/2018 CARDIOLOGY CONSULTATION CONSULTING PHYSICIAN: Oscar Lange M.D. REFERRING PHYSICIAN: 1. Sachi Ridley M.D. 2. Tahir Marx D.O. REASON FOR REFERRAL: Seroquel overdose. HISTORY OF PRESENT ILLNESS: This is an elderly gentleman 72 years old, who is usually followed by Dr. Manfred Guzmán. The patient is on a medication called pramipexole dihydrochloride 0.5 mg which he was supposed to take 18 tablets at nighttime, unfortunately picked up the wrong medication bottle, took 18 tablets of Seroquel instead and finally presented to the emergency room at [facility] because of that unintentional overdose, really has not had any problems, initially had rapid heart rate that actually improved. He is feeling fine right now and has been wanting to go home. [facility] Control [facility] has been contacted by the primary care team and they released him for discharge apparently. Cardiac evaluation was requested as well. The patient has no chest pain or pressure. There is no PND. No orthopnea. He is active but not to a significant degree. He is able to walk. He is able to go up and down stairs although he states he is not doing that as much as he as when he was young. He does not have any pain, pressure, tightness, heaviness, discomfort, or shortness of breath when he does that. There is no orthopnea. He uses one pillow. No dizziness on standing. No heart pounding or palpitations. PAST MEDICAL HISTORY: Positive for history of depression for which he has tried on different medication and the apparently the new medications that he started on he is supposed to take 18 tablets twice a day as mentioned. He also has a history of asthma as a child. There has been some elevated blood pressure but never been treated for. No history of heart attack, cancer, stroke, hepatitis or tuberculosis. No ulcers. No kidney, liver problems, thyroid problems, anemia, arthritis, HIV, AIDS, blood clots, diabetes, hypertension, heart attack, bleeding disorders. ALLERGIES: Not allergic to any medications. SOCIAL HISTORY: Never smoked. Never drank alcoholic beverages. No drug use. REVIEW OF SYSTEMS: GASTROINTESTINAL: Negative. GENITOURINARY: Negative. PULMONARY: Negative. CONSTITUTIONAL: Negative. NEUROLOGIC: He has had problem with mild imbalance but that is not a new issue for him. CARDIAC: As mentioned in history of present illness. PHYSICAL EXAMINATION: GENERAL: Shows to be a middle-aged the gentleman in no respiratory distress. VITAL SIGNS: Blood pressure anywhere between 102/50 to 129/61, heart rates between 80 at the present time. It has been as high as 112. NECK: Supple. No jugular venous distention. No carotid bruits noted. LUNGS: Clear to auscultation and percussion. CARDIAC: S1 is normal. S2 is normal. Regular rate and rhythm. No heaves or thrills noted. There is a faint systolic ejection murmur. There is no RV lifts, heaves, or thrills. ABDOMEN: Soft and obese. Positive bowel sounds. EXTREMITIES: There is edema of the lower extremities. No other abnormalities noted. NEUROLOGIC: He is awake, alert, and responsive. LABORATORY AND DIAGNOSTIC DATA: White count 6.5, hemoglobin 15, and platelet count of 169. Sodium is 141, potassium 4.2, chloride 108, bicarb 26, BUN 15, creatinine 1.1, and glucose of 99. Calcium is 8.72. Two sets of cardiac enzymes are negative yesterday and again this morning. His liver function tests were normal at the time of presentation 06/06/2018 midnight or so. Toxicology screen was otherwise negative. He really did not have any EKGs performed. His electrocardiograms have shown sinus rhythm with bundle-branch conduction defect which in direct comparison with the EKG that was faxed from Dr. Wale Guzmán's office appears not to have changed although maybe a bit more tachycardic at a rate of 100 to 104 is being documented, except for the right being more rapid is otherwise unchanged. ASSESSMENT AND PLAN: 1. Inadvertent Seroquel overdose. 2. Depression history. Dr. Ridley and Dr. Marx, this patient was seen in cardiac consultation. No signs or symptoms of significant cardiac disturbance. He will have orthostatic vitals checked. Otherwise does not appear to be orthostatic. His heart rate does not appear to be significantly increased. There is no significant QT prolongation and no significance other side effects of the Seroquel overdose from a cardiac point of view. The telemetry showed shows no bradycardia, no significant tachycardia, and his laboratory values that have been checked are adequate. My recommendation would be to document set of orthostatic vitals to make sure the patient is not orthostatic and from my point of view can be discharged whenever other consultants feel adequate as well. Oscar Lange M.D. DR: Dennis JOB#: [id number] CC:
--- NOTE | 2018-06-07 16:19 | NUR ---
*-* DISCHARGE PLANNING *-* PATIENT HAS BEEN REFERRED TO: [facility] P:[phone] Addendum: 06/08/18 at 1509 by TYSON BATRES CM SPOKE TO LILLIAN THEY HAVE CONFIRMED TO FOLLOW PATIENT
--- NOTE | 2018-06-07 18:50 | NUR ---
CASE MANAGEMENT: REVIEW 72/M PRESENTED TO ED FROM HOME CC: OVERDOSE SI: SEROQUEL TOXICITY T 98.0 HR 110 RR 16 BP 106/87 SAT 97% ROOM AIR SALICYLATES 1.3 ACETAMINOPHEN <2 SERUM ALCOHOL <3 IS: NS IVF BOLUS X1 SODIUM BICARB IV X1 MAG SULFATE IV X1 PATIENT ADMITTED TO TELEMETRY UNIT 06/06/2018 DCP: PATIENT IS FROM HOME
--- NOTE | 2018-06-08 17:39 | Cardiology Report ---
APPROVED REPORT EKG Measurement Heart [id number] Normal sinus rhythm Nonspecific intraventricular block Right ventricular hypertrophy Abnormal ECG
--- NOTE | 2018-06-09 06:51 | Discharge Summary ---
Discharge Summary Discharge Summary _ DATE OF ADMISSION: 06/06/2018 DATE OF DISCHARGE: 06/07/2018 DISCHARGED BY: Dr. 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 He took 18 pills of Zyprexa each 75 mg instead of his pramipexole, and started to feel weak. He called himself the Poison Control [facility] and had been told to come to the emergency room. Upon evaluation patient was slightly tachycardic with heart rate 110. Blood pressure was stable , and pulse oximetry was stable on room air. Laboratory workup revealed no leukocytosis , stable hemoglobin hematocrit , stable electrolytes and renal parameters . Glucose 133. Stable LFT . Serum alcohol , salicylates and Tylenol were all negative. Urine toxicology screen was negative. troponin negative. EKG revealed mild prolongation of QRS , but patient reported having an intraventricular block , however unable to provide more specific history. Poison control recommended sodium bicarbonate , Heart rate subsequently improved to 90 . Patient was admitted to monitored floor for further management. CONSULTANTS: r and d lab technician Dr. Lange [facility]: Patient admitted to telemetry floor. Patient started on the IV fluids. EKG revealed normal sinus rhythm with right ventricular hypertrophy and nonspecific intraventricular block. Echocardiogram revealed preserved ejection fraction 55-60% with mild left ventricular hypertrophy. No evidence of wall motion abnormality. Right ventricular systolic pressure of 19. No orthostatic vital signs changes . Heart rate improved ,no significant QT prolongation ,no significant side effects of Seroquel dose from cardiac point of view. Telemetry showed no bradycardia , no significant tachycardia. Laboratory values were stable. Troponin x2 negative. Pulse oximetry was stable on room air, No signs of respiratory distress. Patient was cleared for discharge with outpatient follow-up with jordan Guzmán. Due to rapid and unexpected improvement in patient condition, patient was discharged in 1 day. FINAL DIAGNOSES: Accidental Seroquel overdose Parkinson disease Dehydration Depression DISCHARGE MEDICATIONS: See Medication Reconciliation list. DISCHARGE INSTRUCTIONS: Patient was discharged home with home health services. Follow up with primary care provider in one week. I have been assigned to dictate discharge summary for this account. I was not involved in the patient's management. Cielo Robison NP Jun 09, 2018 06:50
== END 2018-06-07 15:15 | disposition home health service (06) | DRG 918 ==
LOC: EMR 23:58 → 2E 06-06 00:30 → EDBEDREQ 06-06 08:38 → 2E 06-07 07:42
DX: T43.591A Poisoning by other antipsychotics and neuroleptics, accidental (unintentional), initial encounter (principal); G20 Parkinson's disease; R53.1 Weakness; R42 Dizziness and giddiness; R11.0 Nausea; Y92.009 Unspecified place in unspecified non-institutional (private) residence as the place of occurrence of the external cause; H91.90 Unspecified hearing loss, unspecified ear; F32.9 Major depressive disorder, single episode, unspecified
CPT/HCPCS: 36415; 80048; 80053; 80307; 80329; 84484; 85025; 93005; 93306; 96361; 96374; 99284